=== PATIENT | female | born 1965 | race Caucasian/White ===

== ENCOUNTER → 2018-01-22 | Outpatient (CLI) | payer BC, OTHER ==
[2018-01-22 17:54] LABS: BASO % 0.5 %; BASO ABS # 0.03 K/uL (0-0.2); EOS % 3.8 %; EOS ABS # 0.21 K/uL (0-0.5); HEMATOCRIT 39.3 % (37-47); HEMOGLOBIN 13.2 g/dL (12.0-16.0); IG# 0.01 K/uL (0.00-0.02); LYMPH % 40.4 %; LYMPH ABS # 2.22 K/uL (1.2-3.4); MEAN CELL VOLUME 91.6 fL (80-100); MEAN CORPUSCULAR HEMOGLOBIN 30.8 pg (25-34); MEAN CORPUSCULAR HGB CONC 33.6 g/dl (32-36); MEAN PLATELET VOLUME 9.3 fL (7.4-10.4); MONO % 12.9 %; MONO ABS # 0.71 K/uL (0.11-0.59); NEUT % 42.2 %; NEUT ABS # 2.32 K/uL (1.4-6.5); PLATELET COUNT 248 K/uL (130-400); RED CELL DISTRIBUTION WIDTH CV 13.5 % (11.5-14.5); RED CELL DISTRIBUTION WIDTH SD 44.6 fL (36.4-46.3)
[2018-01-22 18:22] LABS: BLOOD UREA NITROGEN 14 mg/dl (7-18); CALCIUM 9.5 mg/dl (8.5-10.1); CARBON DIOXIDE 33 mmol/L (21-32); CHOLESTEROL 197 mg/dl (0-200); CREATININE 0.73 mg/dl (0.60-1.20); GLUCOSE 87 mg/dl (70-99); POTASSIUM 3.3 mmol/L (3.5-5.1); SODIUM 139 mmol/L (136-145)
[2018-01-22 18:26] LABS: LDL CHOLESTEROL CALCULATED 100 mg/dl; TRANSFERRIN 248 mg/dl (200-360)
== END | disposition home or self-care (01) ==
LOC: C.LABMFLN 16:27
PROVIDERS: ATTEND Family Medicine
DX: M79.89 Other specified soft tissue disorders (principal); D64.9 Anemia, unspecified

== ENCOUNTER → 2018-05-27 | Outpatient (CLI) | payer BC, OTHER | END | disposition home or self-care (01) | LOC: C.PAPS 18:40 | PROVIDERS: ATTEND Family Medicine | DX: Z00.00 Encounter for general adult medical examination without abnormal findings (principal); Z01.419 Encounter for gynecological examination (general) (routine) without abnormal findings ==

== ENCOUNTER → 2018-05-27 | Outpatient (CLI) | payer BC, OTHER ==
[2018-05-27 18:30] LABS: BASO % 0.9 %; BASO ABS # 0.04 K/uL (0-0.2); EOS % 2.5 %; EOS ABS # 0.11 K/uL (0-0.5); HEMATOCRIT 43.7 % (37-47); HEMOGLOBIN 14.3 g/dL (12.0-16.0); LYMPH % 30.7 %; LYMPH ABS # 1.34 K/uL (1.2-3.4); MEAN CELL VOLUME 95.6 fL (80-100); MEAN CORPUSCULAR HEMOGLOBIN 31.3 pg (25-34); MEAN CORPUSCULAR HGB CONC 32.7 g/dl (32-36); MEAN PLATELET VOLUME 9.8 fL (7.4-10.4); MONO % 16.3 %; MONO ABS # 0.71 K/uL (0.11-0.59); NEUT % 49.6 %; NEUT ABS # 2.16 K/uL (1.4-6.5); PLATELET COUNT 247 K/uL (130-400); RED CELL DISTRIBUTION WIDTH CV 14.4 % (11.5-14.5); WHITE BLOOD COUNT 4.36 K/uL (4.8-10.8)
[2018-05-27 18:47] LABS: BLOOD UREA NITROGEN 12 mg/dl (7-18); CALCIUM 8.8 mg/dl (8.5-10.1); CARBON DIOXIDE 28 mmol/L (21-32); CREATININE 0.69 mg/dl (0.60-1.20); GLUCOSE 85 mg/dl (70-99); POTASSIUM 3.6 mmol/L (3.5-5.1); SODIUM 139 mmol/L (136-145); TRANSFERRIN 242 mg/dl (200-360)
== END | disposition home or self-care (01) ==
LOC: C.LABMFLN 13:56
PROVIDERS: ATTEND Family Medicine
DX: D64.9 Anemia, unspecified (principal); E87.6 Hypokalemia